=== PATIENT | female | born 1975 | race Caucasian/White ===

== ENCOUNTER 2017-02-28 15:20 | Emergency (ER) | payer BC ==
[~2017-02-28] VITALS: Ht 160 cm; Wt 75.5 kg
[2017-02-28 15:28] VITALS: BP 125/80
[2017-02-28] MEDS ORDERED: LEVOTHYROXINE112 MCG PO (16:00)
== END 2017-02-28 16:01 | disposition home or self-care (01) ==
LOC: EME 15:20
DX: S50.11XA Contusion of right forearm, initial encounter (principal); W20.8XXA Other cause of strike by thrown, projected or falling object, initial encounter; E03.9 Hypothyroidism, unspecified
CPT/HCPCS: 99281; 99284